=== PATIENT | female | born 1995 | race Caucasian/White ===

== ENCOUNTER 2020-12-15 09:26 | Emergency (ER) | payer MEDICAID ==
[~2020-12-15] VITALS: Ht 152.4 cm; Wt 68.0 kg
[2020-12-15] MEDS ORDERED: ONDANSETRON HCL 4MG/2ML INJ IV STA (10:17)
[2020-12-15] MEDS ORDERED: KETOROLAC 30MG/ML VIAL IV STA (10:17)
[2020-12-15 10:51] LABS: BASOPHILS % 0.3 % (0.0-2.0); EOSINOPHILS % 0.6 % (0.0-5.0); HEMOGLOBIN. 13.6 g/dL (12.0-16.0); LYMPHOCYTES % 11.2 % (20.0-50.0); MEAN CORPUSCULAR VOLUME 96.8 fL (81.0-99.0); MEAN PLATELET VOLUME 7.8 fl (7.4-10.4); MONOCYTES % 6.4 % (2.0-8.0); NEUTROPHILS % 81.5 % (40.0-76.0); PLATELET 296 x1000/uL (130-400); RED BLOOD CELL COUNT 4.14 mill/uL (4.2-5.4); RED CELL DISTRIBUTION WIDTH 12.7 % (11.6-14.6)
[2020-12-15 10:59] LABS: CHLORIDE 106 mEq/L (98-107)
[2020-12-15 11:05] LABS: CLARITY URINE CLEAR (CLEAR); COLOR URINE ORANGE (YELLOW); KETONES URINE TRACE (NEGATIVE); LEUKOCYTE ESTERASE URINE TRACE (NEGATIVE); NITRITE URINE POSITIVE (NEGATIVE); OCCULT BLOOD URINE NEGATIVE (NEGATIVE); PH URINE 5.5 (4.5-8.0); PROTEIN URINE 1+ (NEGATIVE); SPECIFIC GRAVITY URINE 1.032 (1.005-1.030)
[2020-12-15 11:09] LABS: HCG SCREEN NEGATIVE; PROTHROMBIN TIME 10.8 sec (9.6-11.0)
[2020-12-15] MEDS ORDERED: NITR100C PO (11:22)
[2020-12-15] MEDS ORDERED: TOPUD PO (11:23)
[2020-12-15] MEDS ORDERED: ONDANSETRON HCL 4MG TABLET PO ONE (11:30)
[2020-12-15] MEDS ORDERED: NITROFURANTOIN 100MG M/M CAPSULE PO ONE (11:30)
[2020-12-15] MEDS ORDERED: ACETAMINOPHEN 325MG TABLET PO ONE (11:30)
[2020-12-15 11:50] VITALS: BP 114/78
== END 2020-12-15 11:53 | disposition home or self-care (01) ==
LOC: ER 09:26
DX: N39.0 Urinary tract infection, site not specified (principal); Z98.890 Other specified postprocedural states
CPT/HCPCS: 36415; 80053; 81003; 81025; 83690; 84703; 85025; 85610; 99284; A4217; Q0162